=== PATIENT | female | born 1955 | race Caucasian/White ===

== ENCOUNTER 2022-05-25 14:48 | Emergency (ER) | payer BC, OTHER ==
[2022-05-25] MEDS ORDERED: MORPHINE 4 MG/ML SYR ONE (15:23)
[2022-05-25] MEDS ORDERED: ONDANSETRON 4 MG/2 ML VIAL ONE (15:23)
[2022-05-25 15:39] LABS: Hematocrit 42.1 % (36.0-45.0); Lymphocytes % 20.2 % (15.3-44.8); MCV 102.2 fL (80-100); MPV 8.6 fL (7.6-11.3); RBC Red Blood Cell Count 4.12 M/uL (3.86-4.86)
[2022-05-25 15:39] LABS: Urine Blood 1+ (Negative); Urine Glucose Negative (Negative); Urine Protein Negative (Negative)
[2022-05-25 15:49] LABS: Urine Bacteria <20 /HPF (<20); Urine RBC <5 /HPF (None Seen)
--- OUTSIDE RECORDS SUMMARY | 2022-05-25 15:53 | XMS REPORT | Continuity of Care Document ---
:[address] [facility] t Address [address] [place] [address] [address] [place] [address] Care Team Providers Name Role Phone SLY DEL CASTILLO Primary Care Physician Unavailable Ti Attending Clinician Unavailable MANUEL AQUINO III Attending Clinician Unavailable Only, Ang Db Test Attending Clinician Unavailable Manuel Aquino MD Attending Clinician Doctor Unassigned, [place] Attending Clinician Unavailable Ti Admitting Clinician Unavailable Payers Payer Name Policy Type Policy Number Effective Date Expiration Date S jake [facility] [place]UE [id number] 2020 ADVANTAGE (HMO) 00:00:00 [facility] BLUE [id number] 2021 ADVANTAGE O 00:00:00 ALLIED BENEFIT [id number] [facility] 00:00:00 (PPO) Problems Condition Condition Condition Status Onset Resolution Last Treating Co mments Source Name Details Category Date Date Treatment Clinician Date Hypothyroi Hypothyroi Problem Active [facility] Hyperlipid Hyperlipid Problem Active [facility] Essential Essential Problem Active [facility] hypertensi [facility]pert[facility] Fatigue Fatigue Problem Active [facility] Allergies, Adverse Reactions, Alerts Allergy Allergy Status Severity Reaction(s) Onset Inactive Treating Comm ents Source Name Type Date Date Clinician Pravasta Allergy Active Myalgias [facility] tin to (muscle da substanc pain) [facility] NO KNOWN Drug Active [facility] ALLERGIE Class ity of [facility] Social History Social Habit Start Date Stop Date Quantity Comments Source Exposure to Yes [facility] SARS-CoV-2 (event) Medica l Branch Sex Ass[birth year] At [birth year] [facility] 00:00:00 00:00:00 Medical Branch Smoking Status Start Date Stop Date Source Unknown if ever smoked [facility] Former Smoker [facility] Medications Ordered Filled Start Stop Current Ordering Indication Dosage Frequency Signature Comments Components Source Medication Medication Date Date Medication? Clinician (SIG) Name Name fluoxetine fluoxetine No fluoxetine [facility] 20 mg 20 mg 20 mg da capsule capsule capsule Medica l Take 1 Take 1 Take 1 Group capsule by capsule by capsule by mouth twice mouth twice mouth daily daily twice daily lisinopril lisinopril No lisinopril [facility] 10 mg 10 mg 10 mg da tablet Take tablet Take tablet Medical 1 tablet by 1 tablet by Take 1 Group mouth once mouth once tablet by daily daily mouth once daily meclizine meclizine No meclizine [facility] 25 mg 25 mg 25 mg da tablet Take tablet Take tablet Medical 1 tablet by 1 tablet by Take 1 Group mouth three mouth three tablet by times daily times daily mouth as needed as needed three times daily as needed metoprolol metoprolol No metoprolol [facility] tartrate 25 tartrate 25 tartrate da mg tablet mg tablet 25 mg Medi isra Take 1 Take 1 tablet Group tablet by tablet by Take 1 mouth twice mouth twice tablet by daily daily mouth twice daily fluoxetine fluoxetine No fluoxetine [facility] 20 mg 20 mg 20 mg da capsule capsule capsule Medica l TAKE 1 TAKE 1 TAKE 1 Group CAPSULE BY CAPSULE BY CAPSULE BY MOUTH TWICE MOUTH TWICE MOUTH DAILY DAILY TWICE DAILY lisinopril lisinopril No lisinopril [facility] 10 mg 10 mg 10 mg da tablet Take tablet Take tablet Medical 1 tablet by 1 tablet by Take 1 Group mouth once mouth once tablet by daily daily mouth once daily meclizine meclizine No meclizine [facility] 25 mg 25 mg 25 mg da tablet TAKE tablet TAKE tablet Medical 1 TABLET BY 1 TABLET BY TAKE 1 Group MOUTH THREE MOUTH THREE TABLET BY TIMES DAILY TIMES DAILY MOUTH NEEDED NEEDED THREE TIMES DAILY NEEDED metoprolol metoprolol No metoprolol [facility] tartrate 25 tartrate 25 tartrate da mg tablet mg tablet 25 mg Medi isra Take 1 Take 1 tablet Group tablet by tablet by Take 1 mouth twice mouth twice tablet by daily daily mouth twice daily Vital Signs Vital Name Observation Time Observation Value Comments Source BP Diastolic 2021-12-18 00:00:00 76 mm[Hg] [facility] Height 2021-12-18 00:00:00 63 [in_i] [facility] BMI (Body Mass 2021-12-18 00:00:00 33.3 kg/m2 [facility] Medical Index) Group BP Systolic 2021-12-18 00:00:00 116 mm[Hg] [facility] Body Weight 2021-12-18 00:00:00 3010 [oz_av] [facility] BP Diastolic 2020-12-16 00:00:00 70 mm[Hg] [facility] Height 2020-12-16 00:00:00 63 [in_i] [facility] BMI (Body Mass 2020-12-16 00:00:00 33 kg/m2 [facility] Medical Index) Group BP Systolic 2020-12-16 00:00:00 113 mm[Hg] [facility] Body Weight 2020-12-16 00:00:00 2984 [oz_av] [facility] Height 2020-01-04 00:00:00 63 [in_i] [facility] BMI (Body Mass 2020-01-04 00:00:00 32.2 kg/m2 [facility] Group Body Weight 2020-01-04 00:00:00 2912 [oz_av] [facility] BP Diastolic 2018-11-30 00:00:00 93 mm[Hg] [facility] Height 2018-11-30 00:00:00 63 [in_i] [facility] BMI (Body Mass 2018-11-30 00:00:00 33 kg/m2 [facility] Medical Index) Group BP Systolic 2018-11-30 00:00:00 151 mm[Hg] [facility] Body Weight 2018-11-30 00:00:00 2980 [oz_av] [facility] Procedures Procedure Date / Time Performing Clinician Source Performed MAMMO, screening, 2021-12-18 00:00:00 [facility] digital, bilateral Group ASSIGNMENT OF BENEFITS 2021-05-10 20:00:08 Doctor Unassigned, No [facility] Name Medical Branch MAMMO, screening, 2020-12-16 00:00:00 [place] [facility], bilateral Group MAMMO, screening, 2018-11-30 00:00:00 [place] [facility], bilateral Group Caesarean Section [place] [facility] Tonsillectomy [facility] Plan of Care Planned Activity Planned Date Details Comments Source Diagnostic Test 2021-12-18 CMP, serum or plasma [facility] Pending 00:00:00 [code = CMP, serum Group or plasma] Diagnostic Test 2021-12-18 lipid panel, serum [facility] Pending 00:00:00 [code = lipid panel, Group serum] Diagnostic Test 2021-12-18 hepatitis C virus [facility] 00:00:00 Ab, serum [code = Group hepatitis C virus Ab, serum] Diagnostic Test 2021-12-18 hemoglobin A1c, QN, [facility] 00:00:00 blood [code = Group hemoglobin A1c, QN, blood] Diagnostic Test 2021-12-18 pap, LB + HR HPV [facility] 00:00:00 [code = pap, LB + HR Group HPV] Encounters Start End Encounter Admission Attending Care Care Encounter Source Date/Time Date/Time Type Type Clinicians Facility Department ID 2021-12-18 2021-12-18 Outpatient Zuniga_F [facility] [id number] [facility] 00:00:00 00:00:00 [facility] 2021-12-18 2021-12-18 Sly [facility] [place] - [id number] [facility] 00:00:00 00:00:00 [facility] MD: [address] [facility] [address], [place] [address] , Ph. 2021-12-13 2021-12-13 [id number] [facility] 00:00:00 00:00:00 [facility] 2021-12-12 2021-12-12 [id number] [facility] 00:00:00 00:00:00 916 [facility] 2021-05-10 2021-05-10 Outpatient R TODD MARY, [facility] [id number] Univers 14:00:00 14:15:19 MANUEL ity of [facility] 2021-05-10 2021-05-10 Laboratory Only, Ang Db Test [facility] 1.2.8 40.114 [id number] Univers 14:00:00 14:15:00 Only Manuel Aquino [facility] [id number] ity of [place] [id number] [place] ESTRELLA?BLEA [id number] [address] MEDICAL OFFICE BUILDING 2021-05-10 2021-05-10 Orders Doctor CATHERINE [id number] Univers 00:00:00 00:00:00 Only Unassigned, [place] [id number] [facility] [id number] [place] [id number] [address] 2021-04-26 2021-04-26 Outpatient Zuniga_F [facility] [id number] [facility] 00:00:00 00:00:00 129 [facility] 2021-04-08 2021-04-08 Outpatient Zuniga_F [facility] [id number] [facility] 02:01:00 02:01:00 111 [facility] 2021-03-04 2021-03-04 Outpatient Zuniga_F [facility] [id number] [facility] 02:01:00 02:01:00 207 [facility] 2021-01-28 2021-01-28 Outpatient Zuniga_F [facility] [id number] [facility] 01:42:00 01:42:00 102 [facility] 2020-12-24 2020-12-24 Outpatient Zuniga_F [facility] [id number] [facility] 01:16:00 01:16:00 928 [facility] 2020-12-17 2020-12-17 Outpatient Zuniga_F [facility] [id number] [facility] 09:58:00 09:58:00 921 [facility] 2020-12-16 2020-12-16 Outpatient Zuniga_F [facility] [id number] [facility] 04:48:00 04:48:00 920 [facility] 2020-12-16 2020-12-16 Sly [facility] [place] - [id number] [facility] 00:00:00 00:00:00 Kaitlynn Abrams MD: [address] [facility] [address], [place] [address] , Ph. 2020-02-14 2020-02-14 Outpatient Zuniga_F [facility] [id number] [facility] 02:39:00 02:39:00 118 [facility] 2020-02-11 2020-02-11 Outpatient Zuniga_F [facility] [id number] [facility] 01:04:00 01:04:00 115 [facility] 2020-01-19 2020-01-19 Outpatient Zuniga_F [facility] [id number] [facility] 03:33:00 03:33:00 023 [facility] 2020-01-07 2020-01-07 Outpatient Zuniga_F [facility] [id number] [facility] 01:03:00 01:03:00 011 [facility] 2020-01-07 2020-01-07 Outpatient Zuniga_F [facility] [id number] [facility] 01:03:00 01:03:00 013 [facility] 2020-01-04 2020-01-04 Outpatient Zuniga_F [facility] [id number] [facility] 07:17:00 07:17:00 008 [facility] 2020-01-04 2020-01-04 Sly [facility] [place] - [id number] [facility] 00:00:00 00:00:00 Kaitlynn Abrams MD: [address] [address], [place] [address] , Ph. 2019-09-22 2019-09-22 Outpatient Zuniga_F [facility] [id number] [facility] 11:38:00 11:38:00 626 Medical Group 2019-08-30 2019-08-30 Outpatient Zuniga_F [facility] [id number] [facility] 01:13:00 01:13:00 603 [facility] 2019-07-26 2019-07-26 Outpatient Zuniga_F [facility] [id number] [facility] 12:41:00 12:41:00 429 Medical Group 2019-07-25 2019-07-25 Outpatient Zuniga_F [facility] [id number] [facility] 03:52:00 03:52:00 428 Medical Group 2019-07-25 2019-07-25 Sly [facility] [place] - [id number] [facility] 00:00:00 00:00:00 Kaitlynn Abrams MD: [address] [place] [address], [place] [address] , Ph. 2018-11-30 2018-11-30 Sly [facility] [place] - [id number] [facility] 00:00:00 00:00:00 Kaitlynn Abrams MD: [address] [place] [address], [address] [address], [place] [address] , Ph. Results This patient has no known results.
[2022-05-25 15:59] LABS: Albumin 4.1 g/dL (3.4-5.0); Bilirubin Total 0.3 mg/dL (0.2-1.0); Potassium 3.8 mmol/L (3.5-5.1); Protein, Total 8.3 g/dL (6.4-8.2)
--- NOTE | 2022-05-25 17:32 | RAD REPORT ---
EXAM DESCRIPTION: CT - Abdomen Pelvis W Contrast - 05/25/2022 4:51 pm CLINICAL HISTORY: ABD PAIN COMPARISON: No comparisons TECHNIQUE: Thin cut axial CT imaging of the abdomen and pelvis was performed following intravenous a dministration of 90 Isovue 300. Multiplanar reformats were generated and reviewed. All CT scans are performed using dose optimization technique as appropriate and may include automated exposure control or mA/KV adjustment according to patient size. FINDINGS: No suspicious findings in the lung bases. The liver, spleen, and pancreas show no suspicious findings. Gallbladder and biliary tree are also wi thout suspicious finding. Symmetric renal function is seen with no hydronephrosis. Exophytic left renal mid pole lobulated cyst ic lesion measuring 5.6 x 4.9 centimeter in greatest axial dimensions, with thin septations, some of which shadowing calcifications. Few other scattered bilateral cortical subcentimeter cysts. . No dilated bowel loops or bowel wall thickening. No free air, free fluid or inflammatory stranding. N o hernia, mass or bulky lymphadenopathy. The urinary bladder is without significant finding. No suspicious bony findings. IMPRESSION: No acute intra-abdominal process. Exophytic left renal 5.6 centimeter mildly complex cyst with septal calcifications, class II by new B osniak criteria, benign.
--- NOTE | 2022-05-25 17:42 | ER ---
Nurse's Notes [facility] Name: Elo Armendariz Age: 66 yrs Sex: Female : 1955 Arrival Date: 05/25/2022 Time: 14:55 Bed 4 Private MD: Diagnosis: Lower abdominal pain, unspecified;Essential (primary) hypertension Presentation: 05/25 15:11 Chief complaint: Patient states: Lower abdominal pain X 1 week. Began with diarrhea and ld1 pain. Coronavirus screen: At this time, the client does not indicate any symptoms associated with coronavirus-19. Ebola Screen: No symptoms or risks identified at this time. Initial Sepsis Screen: Does the patient meet any 2 criteria? No. Patient's initial sepsis screen is negative. Does the patient have a suspected source of infection? No. Patient's initial sepsis screen is negative. Risk Assessment: Do you want to hurt yourself or someone else? Patient reports no desire to harm self or others. Onset of symptoms was May 25, 2022. 15:11 Method Of Arrival: Ambulatory ld1 15:11 Acuity: SUHAS 3 ld1 Triage Assessment: 15:12 General: Appears in no apparent distress. comfortable, Behavior is calm, cooperative, ld1 appropriate for age. Pain: Complains of pain in right lower quadrant and left lower quadrant Pain does not radiate. Pain currently is 6 out of 10 on a pain scale. Quality of pain is described as sharp, shooting, throbbing. EENT: No signs and/or symptoms were reported regarding the EENT system. Neuro: Level of Consciousness is awake, alert, obeys commands, Oriented to person, place, time, situation. Cardiovascular: Capillary refill < 3 seconds Patient's skin is warm and dry. Respiratory: Airway is patent Respiratory effort is even, unlabored. GI: Abdomen is round non-distended, Reports diarrhea. : No signs and/or symptoms were reported regarding the genitourinary system. Derm: No signs and/or symptoms reported regarding the dermatologic system. Musculoskeletal: No signs and/or symptoms reported regarding the musculoskeletal system. Historical: - Allergies: 15:12 No Known Allergies; ld1 - Home Meds: 15:12 lisinopril 2.5 mg Oral tab 1 tab once daily [Active]; metoprolol tartrate 37.5 mg Oral ld1 tab 1 tab once daily [Active]; fluoxetine 10 mg Oral cap 1 cap once daily [Active]; - PMHx: 15:12 Hypertensive disorder; Depressive disorder; ld1 - PSHx: 15:12 section; ld1 - Immunization history:: Adult Immunizations up to date, Client reports having NOT received the Covid vaccine. - Social history:: Smoking status: Patient denies any tobacco usage or history of. Patient/guardian denies using alcohol. Screenin:40 [facility] ED Fall Risk Assessment (Adult) History of falling in the last 3 months, kc6 including since admission No falls in past 3 months (0 pts) Confusion or Disorientation No (0 pts) Intoxicated or Sedated No (0 pts) Impaired Gait No (0 pts) Mobility Assist Device Used No (0 pt) Altered Elimination No (0 pt) Score/Fall Risk Level 0 - 2 = Low Risk Oriented to surroundings, Maintained a safe environment, Educated pt \T\ family on fall prevention, incl call for assistance when getting out of bed, Assessed \T\ reinforced patient's understanding of fall precautions, Hourly rounding (assess needs \T\ fall precautionary measures) done. Abuse screen: Denies threats or abuse. Denies injuries from another. Nutritional screening: No deficits noted. Tuberculosis screening: No symptoms or risk factors identified. Assessment: 15:38 General: Appears in no apparent distress. comfortable, Behavior is calm, cooperative, kc6 appropriate for age. Pain: Complains of pain in left lower quadrant and right lower quadrant Pain does not radiate. Pain currently is 6 out of 10 on a pain scale. Quality of pain is described as crampy, dull, Pain began 1 week ago Is continuous, Alleviated by nothing. Also complains of no other associated symptoms. Neuro: Minor Agitation-Sedation Scale (RASS): 0 - Alert and Calm Level of Consciousness is awake, alert, obeys commands, Oriented to person, place, time, situation, Appropriate for age. Cardiovascular: Capillary refill < 3 seconds. Respiratory: Airway is patent Trachea midline Respiratory effort is even, unlabored, Respiratory pattern is regular, symmetrical. GI: Abdomen is flat, non-distended, Bowel sounds present X 4 quads. Abd is soft X 4 quads Abdomen is tender to palpation in left lower quadrant and right lower quadrant Reports diarrhea, Patient currently denies nausea, vomiting. : No signs and/or symptoms were reported regarding the genitourinary system. EENT: No signs and/or symptoms were reported regarding the EENT system. Derm: No signs and/or symptoms reported regarding the dermatologic system. Skin is intact, Skin is pink, warm \T\ dry. Musculoskeletal: No signs and/or symptoms reported regarding the musculoskeletal system. Circulation, motion, and sensation intact. Capillary refill < 3 seconds, Range of motion: intact in all extremities. 16:38 Reassessment: Patient appears in no apparent distress at this time. No changes from kc6 previously documented assessment. Patient and/or family updated on plan of care and expected duration. Pain level reassessed. Patient is alert, oriented x 3, equal unlabored respirations, skin warm/dry/pink. 17:31 Reassessment: Patient appears in no apparent distress at this time. No changes from kc6 previously documented assessment. Patient and/or family updated on plan of care and expected duration. Pain level reassessed. Patient is alert, oriented x 3, equal unlabored respirations, skin warm/dry/pink. Patient denies pain at this time. Patient states feeling better. Patient states symptoms have improved. Vital Signs: 15:12 BP 142 / 78; Pulse 70; Resp 18; Temp 97.9(O); Pulse Ox 97% on R/A; Weight 79.38 kg; ld1 Height 5 ft. 2 in. (157.48 cm); Pain 6/10; 16:39 BP 142 / 80; Pulse 89; Resp 16 S; Pulse Ox 89% on 2 lpm NC; kc6 17:31 BP 137 / 70; Pulse 65; Resp 19 S; Pulse Ox 99% on R/A; kc6 15:12 Body Mass Index 32.01 (79.38 kg, 157.48 cm) ld1 ED Course: 14:55 Patient arrived in ED. am2 14:57 Wali Cortez DO is Attending Physician. ms3 15:12 Triage completed. ld1 15:12 Arm band placed on right wrist. ld1 15:17 Nisreen Quesada, KVNG is Primary Nurse. kc6 15:38 CBC with Diff Sent. kc6 15:38 CMP Sent. kc6 15:38 Lipase Sent. kc6 15:38 Urine Microscopic Only Sent. kc6 15:41 Patient has correct armband on for positive identification. Placed in gown. Bed in low kc6 position. Call light in reach. Side rails up X 1. Adult w/ patient. 17:39 Ambrose Seals MD is Referral Physician. ms3 17:56 No provider procedures requiring assistance completed. IV discontinued, intact, ap3 bleeding controlled, No redness/swelling at site. Pressure dressing applied. Administered Medications: 15:38 Drug: Zofran (Ondansetron) 4 mg Route: IVP; Site: right antecubital; kc6 17:23 Follow up: Response: No adverse reaction; Nausea is decreased kc6 15:38 Drug: morphine 4 mg Route: IVP; Infused Over: 4 mins; Site: right antecubital; kc6 17:23 Follow up: Response: No adverse reaction; Pain is decreased; RASS: Alert and Calm (0) kc6 17:56 Drug: Bentyl (dicyclomine) 20 mg Route: PO; ap3 Medication: 17:56 VIS not applicable for this client. ap3 Outcome: 17:41 Discharge ordered by . ms3 17:56 Discharged to home ambulatory, with family. ap3 17:56 Condition: good 17:56 Discharge instructions given to patient, family, Instructed on discharge instructions, follow up and referral plans. medication usage, Demonstrated understanding of instructions, follow-up care, medications, Prescriptions given X 1. 18:03 Patient left the ED. ap3 Signatures: Kaylee Bynum am2 Kaylee Huggins, RN RN ap3 Wali Cortez DO DO ms3 yKlie Naranjo RN RN ld1 Nisreen Quesada RN RN kc6 Corrections: (The following items were deleted from the chart) 15:15 15:11 Chief complaint: Patient states: ABD pain ld1 ld1 16:58 16:39 Reassessment: Patient appears in no apparent distress at this time. No changes kc6 from previously documented assessment. Patient and/or family updated on plan of care and expected duration. Pain level reassessed. Patient is alert, oriented x 3, equal unlabored respirations, skin warm/dry/pink. kc6
--- NOTE | 2022-05-25 17:42 | EDPHYS ---
Physician Documentation [facility] Name: Elo Armendariz Age: 66 yrs Sex: Female : 1955 Arrival Date: 05/25/2022 Time: 14:55 Bed 4 Private MD: ED Physician Wali Cortez HPI: 05/25 16:26 This 66 yrs old Female presents to ER via Ambulatory with complaints of Abdominal Pain. ms3 16:27 66-year-old female with past medical history of hypertension, depression presents for ms3 abdominal pain that is been ongoing for 1 week. Patient states the pain is a 5/10 described as dull and located in the left lower quadrant. Patient was seen in urgent care and they were concerned for diverticulitis and patient was sent to the emergency department.. Historical: - Allergies: 15:12 No Known Allergies; ld1 - Home Meds: 15:12 lisinopril 2.5 mg Oral tab 1 tab once daily [Active]; metoprolol tartrate 37.5 mg Oral ld1 tab 1 tab once daily [Active]; fluoxetine 10 mg Oral cap 1 cap once daily [Active]; - PMHx: 15:12 Hypertensive disorder; Depressive disorder; ld1 - PSHx: 15:12 section; ld1 - Immunization history:: Adult Immunizations up to date, Client reports having NOT received the Covid vaccine. - Social history:: Smoking status: Patient denies any tobacco usage or history of. Patient/guardian denies using alcohol. ROS: 16:27 Constitutional: Negative for fever, and chills. Neck: Negative for injury, pain, and ms3 swelling, Cardiovascular: Negative for chest pain, and palpitations. Respiratory: Negative for shortness of breath, cough, wheezing, and pleuritic chest pain. 16:27 MS/Extremity: Negative for injury and deformity, Skin: Negative for injury, rash, and discoloration. 16:27 Abdomen/GI: Positive for abdominal pain. 16:27 All other systems are negative. Exam: 16:27 Constitutional: This is a well developed, well nourished patient who is awake, alert, ms3 and in no acute distress. Head/Face: Normocephalic, atraumatic. Neck: Trachea midline, no cervical lymphadenopathy. Supple, full range of motion without nuchal rigidity, or vertebral point tenderness. No Meningismus. Chest/axilla: Normal chest wall appearance and motion. Nontender with no deformity. Cardiovascular: Regular rate and rhythm with a normal S1 and S2. No gallops, murmurs, or rubs. Normal PMI, no JVD. No pulse deficits. Respiratory: Lungs have equal breath sounds bilaterally, clear to auscultation and percussion. No rales, rhonchi or wheezes noted. No increased work of breathing, no retractions or nasal flaring. 16:27 Abdomen/GI: Inspection: abdomen appears normal, Bowel sounds: normal, Palpation: moderate abdominal tenderness, in the left lower quadrant. Vital Signs: 15:12 BP 142 / 78; Pulse 70; Resp 18; Temp 97.9(O); Pulse Ox 97% on R/A; Weight 79.38 kg; ld1 Height 5 ft. 2 in. (157.48 cm); Pain 6/10; 16:39 BP 142 / 80; Pulse 89; Resp 16 S; Pulse Ox 89% on 2 lpm NC; kc6 17:31 BP 137 / 70; Pulse 65; Resp 19 S; Pulse Ox 99% on R/A; kc6 15:12 Body Mass Index 32.01 (79.38 kg, 157.48 cm) ld1 MDM: 15:57 Patient medically screened. ms3 16:27 Differential diagnosis: appendicitis, diverticulitis, gastritis, non-specific abd pain. ms3 17:41 Data reviewed: vital signs, nurses notes, lab test result(s), radiologic studies, and ms3 as a result, I will discharge patient. I considered the following discharge prescriptions or medication management in the emergency department Medications were administered in the Emergency Department. See MAR. Independent interpretation of the following test(s) in the Emergency Department CT Scan: My interpretation is CT images reviewed by me do not show free air.. Historians other than the Patient: Daughter/Son: Patient's daughter. Counseling: I had a detailed discussion with the patient and/or guardian regarding: the historical points, exam findings, and any diagnostic results supporting the discharge/admit diagnosis, lab results, radiology results, the need for outpatient follow up, to return to the emergency department if symptoms worsen or persist or if there are any questions or concerns that arise at home. ED course: Discussed labs, CT scan with patient, her daughter, and her . Patient to follow-up with GI in 2 to 3 days. Patient to also follow-up with her primary care physician in 2 to 3 days. On reevaluation patient is improved, in no apparent distress, nontoxic-appearing, ambulatory in emergency department, speaking full sentences. Return precautions discussed include worsening symptoms, or any other concerns.. 18:03 ED course: Patient's requested Dicyclomine be called to their pharmacy. Rx ms3 called to [facility].. 05/25 15:16 Order name: CBC with Diff; Complete Time: 15:59 ms3 05/25 15:16 Order name: CMP; Complete Time: 15:59 ms3 05/25 15:16 Order name: Lipase; Complete Time: 15:59 ms3 05/25 15:16 Order name: Urine Microscopic Only; Complete Time: 15:59 ms3 05/25 15:16 Order name: CT Abd/Pelvis - IV Contrast Only ms3 05/25 15:39 Order name: Urine Dipstick-Ancillary; Complete Time: 15:59 EDMS 05/25 15:16 Order name: IV Saline Lock; Complete Time: 15:38 ms3 05/25 15:16 Order name: Labs collected and sent; Complete Time: 15:38 ms3 05/25 15:16 Order name: Urine Dipstick-Ancillary (obtain specimen); Complete Time: 15:38 ms3 05/25 17:32 Order name: CT; Complete Time: 17:33 EDMS Administered Medications: 15:38 Drug: Zofran (Ondansetron) 4 mg Route: IVP; Site: right antecubital; kc6 17:23 Follow up: Response: No adverse reaction; Nausea is decreased kc6 15:38 Drug: morphine 4 mg Route: IVP; Infused Over: 4 mins; Site: right antecubital; kc6 17:23 Follow up: Response: No adverse reaction; Pain is decreased; RASS: Alert and Calm (0) kc6 17:56 Drug: Bentyl (dicyclomine) 20 mg Route: PO; ap3 Disposition Summary: 05/25/22 17:41 Discharge Ordered Location: Home ms3 Condition: Stable ms3 Diagnosis - Lower abdominal pain, unspecified ms3 - Essential (primary) hypertension ms3 Followup: ms3 - With: Private Physician - When: 2 - 3 days - Reason: Recheck today's complaints Followup: ms3 - With: Ambrose Seals MD - When: 2 - 3 days - Reason: Recheck today's complaints Discharge Instructions: - Discharge Summary Sheet ms3 - Abdominal Pain, Adult ms3 Forms: - Medication Reconciliation Form ms3 - Thank You Letter ms3 - Antibiotic Education ms3 - Prescription Opioid Use ms3 Prescriptions: - dicyclomine 20 mg Oral Tablet - take 1 tablet by ORAL route 3 times per day; 15 tablet; Refills: 0, Product ms3 Selection Permitted Signatures: Dispatcher [employer] EDKaylee Hylton RN RN ap3 Wali Cortez DO DO ms3 Kylie Naranjo RN RN ld1 Nisreen Quesada RN RN kc6
[2022-05-25] MEDS ORDERED: DICYCLOMINE HCL 10 MG CAP ONE (17:54)
[2022-05-25 18:17] VITALS: BP 137/70; O2SAT 99
[2022-05-25 18:27] VITALS: TEMP 97
== END 2022-05-25 18:03 | disposition home or self-care (01) ==
LOC: ER 14:48
DX: R10.32 Left lower quadrant pain (principal); I10 Essential (primary) hypertension; F32.A Depression, unspecified
CPT/HCPCS: 85025; 36415; 83690; 80053; 74177; Q9967; J2405; 81003; 81015; 96374; 96375; 99283